=== PATIENT | female | born 1980 | race Two or more races ===

== ENCOUNTER 2017-11-14 05:54 | Inpatient (IN) | payer MEDICAID ==
[~2017-11-14] VITALS: Ht 172.7 cm; Wt 90.9 kg
[2017-11-14] MEDS ORDERED: LACTATED RINGERS 1,000 ML IV SCH ×2 (05:56→06:00)
[2017-11-14] MEDS ORDERED: OXYTOCIN 30U/ 0.9% NaCL 500ML 500 ML IV SCH (05:56)
[2017-11-14] MEDS ORDERED: NEWBORN KIT ONE (05:58)
[2017-11-14] MEDS ORDERED: METOCLOPRAMIDE 5 MG/ML, 2ML ONE (05:58)
[2017-11-14] MEDS ORDERED: SODIUM CITRATE/CITRIC ACID 30 ML UDC ONE ×2 (05:58)
[2017-11-14] MEDS ORDERED: METOCLOPRAMIDE 5 MG/ML, 2ML IV ONE (06:00)
[2017-11-14] MEDS ORDERED: SODIUM CITRATE/CITRIC ACID 30 ML UDC PO ONE (06:00)
[2017-11-14] MEDS ORDERED: LACTATED RINGERS 1,000 ML IVBOLUS ONE (06:00)
[2017-11-14 06:09] VITALS: BP 101/65
[2017-11-14] MEDS ORDERED: LANS15CA PO (06:26)
[2017-11-14] MEDS ORDERED: PREN-3 PO (06:26)
[2017-11-14 06:31] LABS: BASOPHILS # (AUTO) 0.02 x10^3/uL (0-0.1); BASOPHILS % (AUTO) 0 % (0-1); EOSINOPHILS # (AUTO) 0.09 x10^3/uL (0-0.4); EOSINOPHILS % (AUTO) 1 % (1-7); LYMPHOCYTES # (AUTO) 1.42 x10^3/uL (1-3.4); LYMPHOCYTES % (AUTO) 16 % (22-44); MD NO; MEAN CORPUSCULAR HEMOGLOBIN 29.1 pg (27.0-34.8); MEAN CORPUSCULAR HGB CONC 34.1 g/dL (32.4-35.8); MEAN CORPUSCULAR VOLUME 85.1 fL (80-100); MONOCYTES # (AUTO) 0.35 x10^3/uL (0.2-0.8); MONOCYTES % (AUTO) 4 % (2-9); NEUTROPHILS # (AUTO) 6.96 x10^3/uL (1.8-6.8); NEUTROPHILS % (AUTO) 79 % (42-75); PLATELET COUNT 174 x10^3/uL (130-400); RED BLOOD COUNT 4.02 x10^6/uL (3.82-5.3); RED CELL DISTRIBUTION WIDTH 14.3 % (9.6-15.2)
[2017-11-14] MEDS ORDERED: FENTANYL PF 100 MCG/2ML ONE (07:23)
[2017-11-14] MEDS ORDERED: HYDROmorphone 2 MG/ML, 1ML ONE (07:23)
[2017-11-14] MEDS ORDERED: OXYTOCIN 10 UNITS/ML, 1ML ONE (07:23)
[2017-11-14] MEDS ORDERED: CEFAZOLIN 1,000 MG ONE (07:23)
[2017-11-14] MEDS ORDERED: ONDANSETRON 2MG/ML, 2ML ONE (07:23)
[2017-11-14] MEDS ORDERED: METHYLERGONOVINE 0.2 MG/ML IM ONE (07:36)
[2017-11-14] MEDS ORDERED: EPHEDRINE 50 MG/ML, 1ML ONE (07:58)
[2017-11-14] MEDS: LACTATED RINGERS 1,000 ML IV SCH ×4 (08:26→18:26)
[2017-11-14] MEDS ORDERED: morphine SULFATE 10 MG/ML, 1ML IVPush PRN (08:30)
[2017-11-14] MEDS ORDERED: ONDANSETRON 2MG/ML, 2ML IV PRN (08:30)
[2017-11-14] MEDS ORDERED: OXYcodone/APAP 5/325MG TABLET PO PRN (08:30)
[2017-11-14] MEDS ORDERED: MISOPROSTOL 200 MCG TABLET PR PRN (08:30)
[2017-11-14] MEDS: PRENATAL VIT/IRON/FA 1 EACH TABLET PO SCH (09:00)
[2017-11-14] MEDS ORDERED: DIPHENHYDRAMINE 50 MG/ML, 1ML ONE (09:20)
[2017-11-14] MEDS ORDERED: DIPHENHYDRAMINE 50 MG/ML, 1ML IVPush ONE (09:30)
[2017-11-14] MEDS: OXYTOCIN 30U/ 0.9% NaCL 500ML 500 ML IV SCH ×2 (10:25→18:26)
[2017-11-14 10:50] VITALS: BP 103/60
[2017-11-14] MEDS: KETOROLAC 30 MG/1 ML IV PRN ×2 (11:33→20:06)
[2017-11-14 13:51] VITALS: BP 96/58
[2017-11-14 16:00] VITALS: BP 92/49
[2017-11-14 16:40] LABS: BASOPHILS # (AUTO) 0.05 x10^3/uL (0-0.1); BASOPHILS % (AUTO) 0 % (0-1); EOSINOPHILS # (AUTO) 0.05 x10^3/uL (0-0.4); EOSINOPHILS % (AUTO) 1 % (1-7); LYMPHOCYTES # (AUTO) 1.18 x10^3/uL (1-3.4); LYMPHOCYTES % (AUTO) 10 % (22-44); MD NO; MEAN CORPUSCULAR HEMOGLOBIN 28.8 pg (27.0-34.8); MEAN CORPUSCULAR HGB CONC 33.8 g/dL (32.4-35.8); MEAN CORPUSCULAR VOLUME 85.4 fL (80-100); MEAN PLATELET VOLUME 8.6 fL (7.4-10.4); MONOCYTES # (AUTO) 0.46 x10^3/uL (0.2-0.8); MONOCYTES % (AUTO) 4 % (2-9); NEUTROPHILS # (AUTO) 9.92 x10^3/uL (1.8-6.8); NEUTROPHILS % (AUTO) 85 % (42-75); PLATELET COUNT 139 x10^3/uL (130-400); RED BLOOD COUNT 3.73 x10^6/uL (3.82-5.3); RED CELL DISTRIBUTION WIDTH 13.9 % (9.6-15.2)
[2017-11-14 19:30] VITALS: BP 93/54
[2017-11-14 23:45] VITALS: BP 92/48
[2017-11-15] MEDS: KETOROLAC 30 MG/1 ML IV PRN ×2 (01:46→08:02)
[2017-11-15] MEDS: DOCUSATE 100 MG CAPSULE PO PRN ×2 (01:46→08:02)
[2017-11-15 04:45] VITALS: BP 107/69
[2017-11-15 07:40] VITALS: BP 105/61
[2017-11-15] MEDS: PRENATAL VIT/IRON/FA 1 EACH TABLET PO SCH (08:01)
[2017-11-15] MEDS: IBUPROFEN 600 MG TABLET PO PRN (13:56)
[2017-11-15] MEDS: OXYcodone/APAP 5/325MG TABLET PO PRN (13:57)
[2017-11-15 20:09] VITALS: BP 99/62
[2017-11-16] MEDS: IBUPROFEN 600 MG TABLET PO PRN ×3 (02:25→14:20)
[2017-11-16] MEDS: OXYcodone/APAP 5/325MG TABLET PO PRN (02:25)
[2017-11-16 07:00] VITALS: BP 100/65
[2017-11-16] MEDS: DOCUSATE 100 MG CAPSULE PO PRN (07:55)
[2017-11-16] MEDS: PRENATAL VIT/IRON/FA 1 EACH TABLET PO SCH (07:55)
[2017-11-16] MEDS ORDERED: IBUP-1222 PO (13:02)
[2017-11-16] MEDS ORDERED: OXYC-302 PO (13:02)
[2017-11-16] MEDS ORDERED: DOCU-131 PO (13:02)
== END 2017-11-16 14:27 | disposition home or self-care (01) | DRG 766 ==
LOC: LDIP 05:54 → 2NW 11:00
PROVIDERS: ADMIT Obstetrics & Gynecology; ATTEND Obstetrics & Gynecology
PROC: 10D00Z1 Extraction of Products of Conception, Low, Open Approach (ICD-10-PCS; principal; 2017-11-14)
PROC: 0UB70ZZ Excision of Bilateral Fallopian Tubes, Open Approach (ICD-10-PCS; 2017-11-14)
DX: O69.81X0 Labor and delivery complicated by cord around neck, without compression, not applicable or unspecified (principal); O34.211 Maternal care for low transverse scar from previous cesarean delivery; Z30.2 Encounter for sterilization; Z37.0 Single live birth; Z3A.39 39 weeks gestation of pregnancy
CPT/HCPCS: 36415; 85025; 86850; 86900; 88302; J0690; J1170; J1885; J2405; J3010; J1200; J2210; J2590; J2765; J7120